=== PATIENT | male | born 1970 | race Caucasian/White ===

== ENCOUNTER 2025-03-09 13:53 | Emergency (ER) | payer OTHER ==
[~2025-03-09] VITALS: Ht 172.7 cm; Wt 94.3 kg
== END 2025-03-09 14:22 | disposition home or self-care (01) ==
LOC: ER 13:53
DX: S50.01XA Contusion of right elbow, initial encounter (principal); W20.8XXA Other cause of strike by thrown, projected or falling object, initial encounter
CPT/HCPCS: 99282